=== PATIENT | female | born 2000 | race African-American/Black ===

== ENCOUNTER 2019-03-21 15:57 | Emergency (ER) | payer SELFPAY ==
[2019-03-21] MEDS ORDERED: HYDROcodone/Acetaminophen 10/325 mg Tablet ONE (16:23)
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
== END 2019-03-21 17:36 | disposition home or self-care (01) ==
LOC: ERS 15:57
DX: S16.1XXA Strain of muscle, fascia and tendon at neck level, initial encounter (principal); S39.012A Strain of muscle, fascia and tendon of lower back, initial encounter; V49.50XA Passenger injured in collision with unspecified motor vehicles in traffic accident, initial encounter
CPT/HCPCS: 71045; 72100; 72125